=== PATIENT | female | born 1980 | race Hispanic/Latino ===

== ENCOUNTER 2023-05-14 20:39 | Emergency (ER) | payer BC ==
[~2023-05-14] VITALS: Ht 162.6 cm; Wt 87.1 kg
[2023-05-14 21:01] LABS: APPEARANCE,URINE CLEAR (CLEAR); BILIRUBIN,URINE NEGATIVE (NEGATIVE); COLOR,URINE LIGHT-YELLOW (YELLOW); GLUCOSE, URINE (UA) NEGATIVE (NEGATIVE); KETONES,URINE NEGATIVE (NEGATIVE); LEUKOCYTE ESTERASE ,URINE 25 Leu/uL (NEGATIVE); NITRATE,URINE NEGATIVE (NEGATIVE); OCCULT BLOOD,URINE LARGE (NEGATIVE); PH,URINE 5.5 (5.0-8.0); PROTEIN,URINE NEGATIVE (NEGATIVE); UROBILINOGEN,URINE 0.2 mg/dL (0.2-1.0)
[2023-05-14 21:02] LABS: ADD UA MICROSCOPIC YES
[2023-05-14 21:07] LABS: BACTERIA,URINE FEW /HPF (None Seen); MUCUS,URINE FEW LPF (None Seen); RBC,URINE >100 /HPF (0-1); SQUAMOUS EPITHELIAL CELL,UR MOD /HPF (0-2)
[2023-05-14 21:09] LABS: SARS-CoV-2, RNA, NAAT POSITIVE SARS CoV-2 (NEGATIVE)
[2023-05-14 21:16] LABS: RAPID GROUP A STREP negative (NEGATIVE)
[2023-05-14 21:26] LABS: INFLUENZA TYPE A Negative For Type A (NEGATIVE); INFLUENZA TYPE B Negative For Type B (NEGATIVE)
[2023-05-14] MEDS ORDERED: BENZ200C53 PO (21:30)
[2023-05-14] MEDS ORDERED: MOLN200C PO (21:30)
[2023-05-14] MEDS ORDERED: D-ME118S47 PO (21:30)
[2023-05-14] MEDS ORDERED: CEPH500B PO (21:32)
[2023-05-14 21:36] VITALS: BP 115/62; PULSE 78; RESP 16; O2SAT 98
== END 2023-05-14 21:48 | disposition home or self-care (01) ==
LOC: EDH 20:39
DX: U07.1 COVID-19 (principal); N39.0 Urinary tract infection, site not specified; B34.9 Viral infection, unspecified
CPT/HCPCS: 99283; 87635; 87880; 87804 ×2; 81001; C9803